=== PATIENT | male | born 1960 | race African-American/Black ===

== ENCOUNTER 2017-12-20 09:15 | Emergency (ER) | payer SELFPAY ==
[2017-12-20 09:45] VITALS: BP 152/102
== END 2017-12-20 11:08 | disposition left against medical advice (07) ==
LOC: ER 09:40
DX: S70.352A Superficial foreign body, left thigh, initial encounter (principal); M79.5 Residual foreign body in soft tissue; X58.XXXA Exposure to other specified factors, initial encounter; Y93.89 Activity, other specified; Y92.9 Unspecified place or not applicable; E11.9 Type 2 diabetes mellitus without complications; I10 Essential (primary) hypertension; E78.00 Pure hypercholesterolemia, unspecified; Z88.0 Allergy status to penicillin; Z88.8 Allergy status to other drugs, medicaments and biological substances; Z91.14 Patient's other noncompliance with medication regimen
CPT/HCPCS: 76881; 99284; Z7610

== ENCOUNTER 2018-02-17 15:43 | Emergency (ER) | payer SELFPAY ==
[~2018-02-17] VITALS: Ht 182.9 cm; Wt 107.0 kg
[2018-02-17 15:49] VITALS: BP 173/95
== END 2018-02-17 22:00 | disposition home or self-care (01) ==
LOC: ER 16:32
DX: J02.9 Acute pharyngitis, unspecified (principal); E11.9 Type 2 diabetes mellitus without complications; I10 Essential (primary) hypertension; E78.00 Pure hypercholesterolemia, unspecified; Z88.0 Allergy status to penicillin; Z88.8 Allergy status to other drugs, medicaments and biological substances
CPT/HCPCS: 99281

== ENCOUNTER 2020-09-09 08:35 | Emergency (ER) | payer MEDICAID ==
[~2020-09-09] VITALS: Ht 182.9 cm; Wt 86.0 kg
[2020-09-09] MEDS ORDERED: SODIUM CHLORIDE 0.9% 1,000 ML IV ONE (09:30)
[2020-09-09 09:53] LABS: BASOPHILS % 1.3 % (0.0-2.0); EOSINOPHILS % 8.9 % (0.0-5.0); HEMATOCRIT. 45.2 % (42.0-52.0); HEMOGLOBIN. 14.7 g/dL (14.0-18.0); LYMPHOCYTES % 30.8 % (20.0-50.0); MEAN CORPUSCULAR HEMOGLOBIN 30.4 pg (28.0-32.0); MEAN CORPUSCULAR VOLUME 93.6 fL (80.0-94.0); MEAN PLATELET VOLUME 8.9 fl (7.4-10.4); MONOCYTES % 6.3 % (2.0-8.0); NEUTROPHILS % 52.7 % (40.0-76.0); PLATELET 187 x1000/uL (130-400); RED BLOOD CELL COUNT 4.84 mill/uL (4.7-6.1); RED CELL DISTRIBUTION WIDTH 12.9 % (11.6-14.6)
[2020-09-09 10:06] LABS: CHLORIDE 105 mEq/L (98-107)
[2020-09-09 10:10] LABS: ETHANOL BLOOD < 10 mg/dL
[2020-09-09 12:04] LABS: CLARITY URINE CLEAR (CLEAR); COLOR URINE YELLOW (YELLOW); KETONES URINE NEGATIVE (NEGATIVE); LEUKOCYTE ESTERASE URINE TRACE (NEGATIVE); NITRITE URINE NEGATIVE (NEGATIVE); OCCULT BLOOD URINE NEGATIVE (NEGATIVE); PROTEIN URINE NEGATIVE (NEGATIVE); SPECIFIC GRAVITY URINE 1.017 (1.005-1.030)
[2020-09-09] MEDS ORDERED: DEXTROSE 5% WATER 1,000 ML IV ONE (12:45)
[2020-09-09 12:48] LABS: *AMPHETAMINES SCREEN URINE PRESUMTIVE POSITIVE (NEGATIVE)
[2020-09-09 12:49] LABS: *BARBITURATES SCREEN URINE NEGATIVE (NEGATIVE); *BENZODIAZEPINES SCREEN URINE NEGATIVE (NEGATIVE); *COCAINE SCREEN URINE NEGATIVE (NEGATIVE); METHADONE URINE SCREEN NEGATIVE (NEGATIVE); OPIATES URINE SCREEN PRESUMTIVE POSITIVE (NEGATIVE); PHENCYCLIDINE URINE SCREEN NEGATIVE (NEGATIVE)
[2020-09-09 12:50] LABS: CANNABINOID URINE SCREEN PRESUMTIVE POSITIVE (NEGATIVE)
[2020-09-09 21:10] VITALS: BP 190/98
== END 2020-09-09 21:22 | disposition home or self-care (01) ==
LOC: ER 08:56
DX: H53.2 Diplopia (principal); E11.9 Type 2 diabetes mellitus without complications; E78.00 Pure hypercholesterolemia, unspecified; I10 Essential (primary) hypertension; F17.290 Nicotine dependence, other tobacco product, uncomplicated; F12.10 Cannabis abuse, uncomplicated; F11.10 Opioid abuse, uncomplicated; Z88.0 Allergy status to penicillin
CPT/HCPCS: 36415; 80053; 80305; 80307; 80320; 80329; 81003; 82140; 82962; 83605; 84443; 84484; 85025; 93005; 96360; 96361; 99285; J7030; J7070; G0480

== ENCOUNTER 2022-08-21 09:57 | Emergency (ER) | payer OTHER ==
[~2022-08-21] VITALS: Ht 182.9 cm; Wt 91.0 kg
[2022-08-21] MEDS ORDERED: ACETAMINOPHEN 325MG TABLET PO ONE (10:45)
[2022-08-21] MEDS ORDERED: TOPUD PO (11:26)
[2022-08-21 12:14] VITALS: BP 133/84
== END 2022-08-21 12:15 | disposition home or self-care (01) ==
LOC: ER 09:57
DX: M25.512 Pain in left shoulder (principal); M19.90 Unspecified osteoarthritis, unspecified site; I10 Essential (primary) hypertension; E11.9 Type 2 diabetes mellitus without complications; E78.00 Pure hypercholesterolemia, unspecified; Z88.0 Allergy status to penicillin; Z88.6 Allergy status to analgesic agent
CPT/HCPCS: 73030; 99283

== ENCOUNTER 2022-11-05 22:12 | Emergency (ER) | payer MEDICAID, OTHER ==
[~2022-11-05] VITALS: Ht 182.9 cm; Wt 90.0 kg
[~2022-11-05 22:12] MED LIST: TOPUD PO
[2022-11-05] MEDS ORDERED: ONDANSETRON HCL 4MG/2ML INJ IM ONE (23:45)
[2022-11-05] MEDS ORDERED: SODIUM CHLORIDE 0.9% 1,000 ML IV ONE (23:45)
[2022-11-06 00:37] LABS: BASOPHILS % 0.5 % (0.0-2.0); EOSINOPHILS % 11.1 % (0.0-5.0); HEMATOCRIT. 41.2 % (42.0-52.0); HEMOGLOBIN. 13.9 g/dL (14.0-18.0); LYMPHOCYTES % 26.1 % (20.0-50.0); MEAN CORPUSCULAR HEMOGLOBIN 30.9 pg (28.0-32.0); MEAN CORPUSCULAR VOLUME 91.9 fL (80.0-94.0); MEAN PLATELET VOLUME 8.6 fl (7.4-10.4); MONOCYTES % 7.6 % (2.0-8.0); NEUTROPHILS % 54.7 % (40.0-76.0); PLATELET 184 x1000/uL (130-400); RED BLOOD CELL COUNT 4.49 mill/uL (4.7-6.1); RED CELL DISTRIBUTION WIDTH 14.5 % (11.6-14.6)
[2022-11-06 00:38] LABS: CHLORIDE 104 mEq/L (98-107)
[2022-11-06] MEDS ORDERED: AMLODIPINE 10MG TABLET PO NR (04:15)
[2022-11-06 05:30] VITALS: BP 165/81
[2022-11-06] MEDS ORDERED: AMLODIPINE 10MG TABLET PO SCH (09:00)
== END 2022-11-06 05:42 | disposition home or self-care (01) ==
LOC: ER 22:19
DX: R42 Dizziness and giddiness (principal); F15.10 Other stimulant abuse, uncomplicated; I10 Essential (primary) hypertension; E11.9 Type 2 diabetes mellitus without complications; E78.00 Pure hypercholesterolemia, unspecified
CPT/HCPCS: 36415; 71045; 80053; 83880; 84484; 85025; 93005; 96372; 99285; J2405; J7030; Z7610

== ENCOUNTER 2024-11-14 00:58 | Emergency (ER) | payer BC, MEDICAID ==
[~2024-11-14] VITALS: Ht 182.9 cm; Wt 98.0 kg
[2024-11-14 01:18] VITALS: O2SAT 97
[2024-11-14] MEDS: ACETAMINOPHEN 325MG TABLET PO ONE (02:01)
[2024-11-14] MEDS ORDERED: AZIT250T12 MT (02:07)
[2024-11-14 02:31] LABS: CLARITY URINE CLEAR (CLEAR); COLOR URINE YELLOW (YELLOW); GLUCOSE URINE NEGATIVE (NEGATIVE); KETONES URINE NEGATIVE (NEGATIVE); LEUKOCYTE ESTERASE URINE NEGATIVE (NEGATIVE); NITRITE URINE NEGATIVE (NEGATIVE); OCCULT BLOOD URINE NEGATIVE (NEGATIVE); PH URINE 5.5 (4.5-8.0); PROTEIN URINE NEGATIVE (NEGATIVE); SPECIFIC GRAVITY URINE 1.008 (1.005-1.030); UROBILINOGEN URINE 0.2 E.U./dL (0.2-1.0)
[2024-11-14 02:40] VITALS: BP 144/82; PULSE 80; RESP 18; TEMP 36.8; O2SAT 97
[2024-11-14 03:13] LABS: INFLUENZA TYPE A Presumptive Negative (Pres. Neg.); INFLUENZA TYPE B Presumptive Negative (Pres. Neg.)
== END 2024-11-14 02:40 | disposition home or self-care (01) ==
LOC: ER 01:14
DX: B34.9 Viral infection, unspecified (principal); G43.909 Migraine, unspecified, not intractable, without status migrainosus; F12.90 Cannabis use, unspecified, uncomplicated; F11.90 Opioid use, unspecified, uncomplicated; Z79.899 Other long term (current) drug therapy; Z88.0 Allergy status to penicillin; Z88.6 Allergy status to analgesic agent
CPT/HCPCS: 81003; 87804; 99283